=== PATIENT | female | born 1990 | race Caucasian/White ===

== ENCOUNTER 2017-04-29 21:02 | Emergency (ER) | payer SELFPAY ==
[~2017-04-29] VITALS: Ht 167.6 cm; Wt 74.8 kg
[~2017-04-29 21:02] MED LIST: AMLO5TAB4 PO; DIVA500T9 PO; HYDR1TAB10 PO; LISI-338 PO; MEMA10TA PO; MIRT15TA PO; PENI500T PO; QUET100T4 PO
[2017-04-29 21:03] VITALS: BP 109/66
[2017-04-29] MEDS ORDERED: PENI500T PO (21:23)
[2017-04-29] MEDS ORDERED: HYDR-2758 PO (21:23)
--- NOTE | 2017-04-29 21:23 | PHYS DOC ---
Past History Past Medical History: No Pertinent History Past Surgical History: No Surgical History Smoking: Cigarettes Alcohol Use: None Drug Use: None Adult General Chief Complaint Chief Complaint: DENTAL PROBLEM HPI HPI 26-year-old female presenting the emergency department today with dental pain on the right lower jaw. She has pain as a throbbing sensation that is nonradiating moderate and intermittent. She denies any associated swelling of the gingiva. She denies tongue swelling drooling difficulty swallowing or neck pain. onset 7days. Review of systems is negative for fevers chills nausea vomiting. All other review of systems is negative unless otherwise noted in history of present illness. ED course: 26-year-old presenting with dental pain. On evaluation the patient has a large cavity on the buccal surface of her left lower first molar. I prescribed the patient oral penicillin and gave her 650 mg of Tylenol in the emergency department for pain control. I then discharged patient home with a small aliquot of hydrocodone and referred her to see a dentist tomorrow morning. Review of Systems Review of Systems SEE ABOVE. Allergies Allergies Allergies Coded Allergies Type Severity Reaction Last Updated Verified No Known Allergies Allergy Unknown 08/20/13 Yes Physical Exam Physical Exam SEE ABOVE Constitutional: Well developed, well nourished, no acute distress, non-toxic appearance. [] HENT: Normocephalic, atraumatic, bilateral external ears normal, oropharynx moist, no oral exudates, nose normal. [] Eyes: PERRLA, EOMI, conjunctiva normal, no discharge. [] Neck: Normal range of motion, no tenderness, supple, no stridor. [] Cardiovascular:Heart rate regular rhythm, no murmur [] Lungs & Thorax: Bilateral breath sounds clear to auscultation [] Abdomen: Bowel sounds normal, soft, no tenderness, no masses, no pulsatile masses. [] Skin: Warm, dry, no erythema, no rash. [] Back: No tenderness, no CVA tenderness. [] Extremities: No tenderness, no cyanosis, no clubbing, ROM intact, no edema. [] Neurologic: Alert and oriented X 3, normal motor function, normal sensory function, no focal deficits noted. [] Psychologic: Affect normal, judgement normal, mood normal. [] EKG EKG [] Radiology/Procedures Radiology/Procedures [] Course & Med Decision Making Course & Med Decision Making Pertinent Labs and Imaging studies reviewed. (See chart for details) [] Dragon Disclaimer Dragon Disclaimer This electronic medical record was generated, in whole or in part, using a voice recognition dictation system. Departure Departure: Impression: Primary Impression: Pain, dental Disposition: HOME, SELF-CARE Condition: STABLE Referrals: PCP,UNKNOWN (PCP) Patient Instructions: Dental Pain Additional Instructions: Thank you for allowing us to participate in your care today. Followup with a dentist tomorrow. Call your Primary Doctor tomorrow and inform them of your visit today. If you do not have a primary care provider you can ask for a list of our primary care providers. Return to the emergency department you have any new or concerning findings. This should be evaluated by the primary care physician and any necessary consulting services for continued management within a few days after discharge. Return to emergency room if you have any new or concerning symptoms including but not limited to fever, chills, nausea, vomiting, intractable pain, any new rashes, chest pain, shortness of air, uncontrolled bleeding, difficulty breathing, and/or vision loss. You may have been prescribed medication that can change in your level of thinking and ability to operate machinery. These medications include hydrocodone and Ativan. Also, Benadryl has been known to do this as well. Be sure to check with your pharmacist and ask if the medications you've prescribed can affect your level of consciousness. I recommend not operating heavy machinery or driving while on medication such as these. Scripts Penicillin V Potassium (PENICILLIN V POTASSIUM) 500 Mg Tablet 1 TAB PO BID, #10 TAB 0 Refills Prov: EVON DUTTA MD 04/29/17 Hydrocodone Bit/Acetaminophen (HYDROCODONE-APAP 5-325 ) 1 Each Tablet 1 TAB PO PRN Q6HRS Y for PAIN, #10 TAB 0 Refills Prov: EVON DUTTA MD 04/29/17 EVON DUTTA MD Apr 29, 2017 21:23
[2017-04-29] MEDS ORDERED: ACETAMINOPHEN 325 MG TABLET PO ONE (21:45)
== END 2017-04-29 21:30 | disposition home or self-care (01) ==
LOC: ER 21:02
DX: K08.89 Other specified disorders of teeth and supporting structures (principal); F17.210 Nicotine dependence, cigarettes, uncomplicated
CPT/HCPCS: 99283

== ENCOUNTER 2017-08-19 14:48 | Emergency (ER) | payer OTHER ==
[~2017-08-19 14:48] MED LIST changes: +HYDR-2758 PO
[2017-08-19 14:55] VITALS: BP 102/70
[2017-08-19] MEDS ORDERED: HYDR115S2 PO (15:19)
[2017-08-19] MEDS ORDERED: AMOX1TAB61 PO (15:19)
[2017-08-19] MEDS ORDERED: ALBU8.5H8 INH (15:19)
[2017-08-19] MEDS ORDERED: METH4TAB2 PO (15:19)
--- NOTE | 2017-08-19 15:20 | PHYS DOC ---
Past History Past Medical History: No Pertinent History Past Surgical History: No Surgical History Smoking: Cigarettes Alcohol Use: None Drug Use: None Adult General Chief Complaint Chief Complaint: COUGH HPI HPI 26-year-old female patient with history of smoking complaining of productive cough with greenish sputum for one week associated with shortness of breath and nasal congestion and sore throat. Patient states he had subjective fever and chills and episodes of vomiting and diarrhea. Patient states she took over-the- counter medication without improvement of her condition and complaining of hurting all over. She states for the last couple days she has history of pruritic rash rash in left side of her neck without having history of rash. Patient denies and states she is homosexual. Review of Systems Review of Systems Constitutional: Reports subjective fever Eyes: Denies change in visual acuity, redness, or eye pain [] HENT: Postnasal congestion and sore throat Respiratory: Reports cough and shortness of breath Cardiovascular: No additional information not addressed in HPI [] GI: Denies abdominal pain, reports nausea, vomiting, diarrhea [] : Denies dysuria or hematuria [] Musculoskeletal: Denies back pain or joint pain [] Integument: Denies skin lesions, reports rash [] Neurologic: Denies headache, focal weakness or sensory changes [] Endocrine: Denies polyuria or polydipsia [] All other systems were reviewed and found to be within normal limits, except as documented in this note. Allergies Allergies Allergies Coded Allergies Type Severity Reaction Last Updated Verified No Known Allergies Allergy Unknown 08/20/13 Yes Physical Exam Physical Exam Constitutional: Well developed, well nourished, mild distress, non-toxic appearance. [] HENT: Normocephalic, atraumatic, bilateral external ears normal, pharyngeal erythema, no pharyngeal edema ,oropharynx moist, no oral exudates, nasal congestion and edema, maxillary sinus tenderness Eyes: PERRLA, EOMI, conjunctiva normal, no discharge. [] Neck: Normal range of motion, no tenderness, supple, no stridor. [] Cardiovascular:Heart rate regular rhythm, no murmur [] Lungs & Thorax: Bilateral breath sounds clear to auscultation [] Abdomen: Bowel sounds normal, soft, no tenderness, no masses, no pulsatile masses. [] Skin: Small area of maculopapular rash in the left side of neck Back: No tenderness, no CVA tenderness. [] Extremities: No tenderness, no cyanosis, no clubbing, ROM intact, no edema. [] Neurologic: Alert and oriented X 3, normal motor function, normal sensory function, no focal deficits noted. [] Psychologic: Affect normal, judgement normal, mood normal. [] EKG EKG [] Radiology/Procedures Radiology/Procedures [] Course & Med Decision Making Course & Med Decision Making Evaluation of patient in ER showed 26-year-old female patient with complaining of URI symptoms for 1 week. Patient did not have fever in ER. Patient has sinus tenderness without abnormal lung exam. Plan discharge patient home with diagnosis of upper respiratory infection instruction to quit smoking. Dragon Disclaimer Dragon Disclaimer This electronic medical record was generated, in whole or in part, using a voice recognition dictation system. Departure Departure: Impression: Primary Impression: Upper respiratory infection Additional Impressions: Pruritic rash Tobacco abuse Tobacco abuse counseling Disposition: HOME, SELF-CARE (At 1517) Condition: STABLE Referrals: PCP,UNKNOWN (PCP) Patient Instructions: Rash, Smoking Cessation, Upper Respiratory Infection, Adult Additional Instructions: Drink plenty of liquids Follow-up with your primary care physician in 3-5 days Return to ER if not getting better Scripts Hydrocodone/Chlorphen P-Stirex (Tussionex Pennkinetic Susp) 115 Ml [place].er.12h 5 ML PO BID, #120 ML Prov: BOWEN DE LA FUENTE MD 08/19/17 Amoxicillin/Potassium Clav (AUGMENTIN 875-125 TABLET) 1 Each Tablet 1 TAB PO BID, #14 TAB Prov: BOWEN DE LA FUENTE MD 08/19/17 Albuterol Sulfate (PROAIR HFA INHALER) 8.5 Gm Hfa.aer.ad 2 PUFF INH PRN Q6HRS Y for SHORTNESS OF BREATH, #1 INHALER 0 Refills Prov: BOWEN DE LA FUENTE MD 08/19/17 Methylprednisolone (MEDROL) 4 Mg Tab.ds.pk 1 PKG PO UD, #1 PKG Prov: BOWEN DE LA FUENTE MD 08/19/17 Problem Qualifiers BOWEN DE LA FUENTE MD Aug 19, 2017 15:20
== END 2017-08-19 15:25 | disposition home or self-care (01) ==
LOC: ER 14:48
DX: J06.9 Acute upper respiratory infection, unspecified (principal); L29.9 Pruritus, unspecified; R21 Rash and other nonspecific skin eruption; F17.210 Nicotine dependence, cigarettes, uncomplicated; Z71.6 Tobacco abuse counseling
CPT/HCPCS: 99283

== ENCOUNTER 2017-12-15 19:02 | Emergency (ER) | payer OTHER ==
[~2017-12-15] VITALS: Ht 167.6 cm; Wt 61.7 kg
[~2017-12-15 19:02] MED LIST changes: +ALBU8.5H8 INH; +AMOX1TAB61 PO; +DIVA-53 PO; -DIVA500T9 PO; +HYDR115S2 PO; +METH4TAB2 PO
--- NOTE | 2017-12-15 19:14 | ED.ADGEN ---
Past History Past Medical History: No Pertinent History Past Surgical History: No Surgical History Smoking: Cigarettes Alcohol Use: Rarely Drug Use: None Adult General Chief Complaint Chief Complaint ".. This tooth back here is killing me.. I ve had cavity in it before.. but it really started hurting tonight..." " I am also vomiting tonight..." HPI HPI Patient is a 27 year old female who presents with above hx and complaints of dental pain tooth 18 has large cavity. Patient denies any history of immunosuppression. Patient denies any history of travel or specific ill contacts. Patient has multiple other dental caries. Patient denies any intake of bad food. She was no trismus. There is no pointing abscess. Pt. states her tooth hurts so much it causing her to vomit. Review of Systems Review of Systems Constitutional: Denies fever or chills [] Eyes: Denies change in visual acuity, redness, or eye pain [] HENT: Denies nasal congestion or sore throat [Complaints of dental pain Respiratory: Denies cough or shortness of breath [] Cardiovascular: No additional information not addressed in HPI [] GI: Denies abdominal pain, Hx of nausea, vomiting. Denies bloody stools or diarrhea [] : Denies dysuria or hematuria [] Musculoskeletal: Denies back pain or joint pain [] Integument: Denies rash or skin lesions [] Neurologic: Denies headache, focal weakness or sensory changes [] Endocrine: Denies polyuria or polydipsia [] All other systems were reviewed and found to be within normal limits, except as documented in this note. Family History Family History Non-contributory Current Medications Current Medications Current Medications Medications (Trade) Dose Ordered Sig/Flaco Start Time Stop Time Status Last Admin Dose Admin Cephalexin HCl (Keflex) 500 mg 1X ONCE 12/15/17 19:45 12/15/17 19:45 DC 12/15/17 19:38 500 MG Ondansetron HCl (Zofran Odt) 8 mg 1X ONCE 12/15/17 19:15 12/15/17 19:17 DC 12/15/17 19:23 8 MG Oxycodone/ Acetaminophen (Percocet 5/325) 2 tab 1X ONCE 12/15/17 19:45 12/15/17 19:45 DC 12/15/17 19:37 2 TAB Allergies Allergies Allergies Coded Allergies Type Severity Reaction Last Updated Verified No Known Allergies Allergy Unknown 08/20/13 Yes Physical Exam Physical Exam Constitutional: in acute distress, non-toxic appearance. [] HENT: Normocephalic, atraumatic, bilateral external ears normal, oropharynx moist, no oral exudates, nose normal. []Dental caries. Lip rings Eyes: PERRLA, EOMI, conjunctiva normal, no discharge. [] Neck: Normal range of motion, no tenderness, supple, no stridor. [] Cardiovascular:Heart rate regular rhythm, no murmur [] Lungs & Thorax: Bilateral breath sounds equal apex with scattered wheezes on auscultation [] Abdomen: Bowel sounds normal, soft, no tenderness, no masses, no pulsatile masses. [] Skin: Warm, dry, no erythema, no rash. [] Back: No tenderness, no CVA tenderness. [] Extremities: No tenderness, no cyanosis, no clubbing, ROM intact, no edema. [] Neurologic: Alert and oriented X 3, normal motor function, normal sensory function, no focal deficits noted. [] Psychologic: Affect anxious, judgement normal, mood normal. [] Current Patient Data Vital Signs Vital Signs Date Time Temp Pulse Resp B/P (MAP) Pulse Ox O2 Delivery O2 Flow Rate FiO2 12/15/17 19:37 0 98 Room Air 12/15/17 19:15 98.2 87 Lab Results Laboratory Tests Test 12/15/17 18:42 12/15/17 19:23 POC Urine HCG, Qualitative hcg negative (Negative) Urine Collection Type Unknown Urine Color Yellow Urine Clarity Clear Urine pH 6.5 Urine Specific [place] <=1.005 Urine Protein Neg (NEG-TRACE) Urine Glucose (UA) Neg mg/dL (NEG) Urine Ketones (Stick) Neg mg/dL (NEG) Urine Blood Trace (NEG) Urine Nitrite Neg (NEG) Urine Bilirubin Neg (NEG) Urine Urobilinogen Dipstick 0.2 mg/dL (0.2 mg/dL) Urine Leukocyte Esterase Neg (NEG) EKG EKG [] Radiology/Procedures Radiology/Procedures [] Course & Med Decision Making Course & Med Decision Making Pertinent Labs and Imaging studies reviewed. (See chart for details).. Must follow up with Dentist. Further narcotics must be written by primary or dentist. Take Keflex 500 three times a day for dental infection. Zofran for nausea and vomiting. Clear fluid diet x 2 days to allow bowel rest. Must follow up. [] Final Impression Final Impression 1. Dental Pain 2. Nausea And Vomiting[] Dragon Disclaimer Dragon Disclaimer This electronic medical record was generated, in whole or in part, using a voice recognition dictation system. MARIAH BUTT MD Dec 15, 2017 19:14
[2017-12-15 19:15] VITALS: BP 114/70
[2017-12-15] MEDS ORDERED: ONDANSETRON ODT 4 MG TAB.RAPDIS PO ONE (19:15)
[2017-12-15] MEDS ORDERED: ONDA8TAB12 PO (19:27)
[2017-12-15] MEDS ORDERED: CEPH-264 PO (19:27)
[2017-12-15 19:41] LABS: BILIRUBIN,URINE NEG (NEG); CLARITY,URINE CLEAR; COLOR,URINE YELLOW; GLUCOSE,URINE NEG (NEG); NITRITE,URINE NEG (NEG); UROBILINOGEN,URINE 0.2 mg/dL (0.2 mg/dL)
[2017-12-15] MEDS ORDERED: CEPHALEXIN 250 MG CAPSULE PO ONE (19:45)
[2017-12-15] MEDS ORDERED: oxyCODONE/APAP 5/325 1 TAB TABLET PO ONE (19:45)
== END 2017-12-15 19:42 | disposition home or self-care (01) ==
LOC: ER 19:02
DX: K08.89 Other specified disorders of teeth and supporting structures (principal); K02.9 Dental caries, unspecified; R11.2 Nausea with vomiting, unspecified; F17.210 Nicotine dependence, cigarettes, uncomplicated
CPT/HCPCS: 81003; 81025; 99284; Q0162

== ENCOUNTER → 2017-12-21 | Outpatient (CLI) | payer OTHER ==
[2017-12-15 19:15] VITALS: BP 114/70
[~2017-12-21] MED LIST changes: +CEPH-264 PO; +ONDA8TAB12 PO
--- NOTE | 2017-12-21 16:15 | RAD ---
EXAM: Abdomen sonogram. HISTORY: Right upper quadrant pain. TECHNIQUE: Sonographic imaging of the abdomen was performed. COMPARISON: None. FINDINGS: The liver is normal in size. No focal hepatic lesion is seen. The gallbladder is unremarkable. The common bile duct is normal in caliber. The right kidney is normal in size. No solid or cystic renal lesion is seen. There is no hydronephrosis. The pancreas, inferior vena cava and aorta are unremarkable. IMPRESSION: Unremarkable abdomen sonogram. Electronically signed by: Tara Leija MD (12/21/2017 4:12 PM) [place] [id number]
== END | disposition home or self-care (01) ==
LOC: US 15:15
PROVIDERS: ATTEND Neuromusculoskeletal Medicine & OMM
DX: R10.11 Right upper quadrant pain (principal); R11.2 Nausea with vomiting, unspecified; Z87.891 Personal history of nicotine dependence
CPT/HCPCS: 76705

== ENCOUNTER 2019-08-23 09:46 | Emergency (ER) | payer SELFPAY ==
[~2019-08-23] VITALS: Ht 167.6 cm; Wt 77.0 kg
[~2019-08-23 09:46] MED LIST changes: +ALBU2.5V8 INH; -ALBU8.5H8 INH; +HYDR-2155 PO; -HYDR-2758 PO
--- NOTE | 2019-08-23 10:18 | PHYS DOC ---
Past History Past Medical History: Asthma Past Surgical History: No Surgical History Smoking: Cigarettes Alcohol Use: Rarely Drug Use: None Adult General Chief Complaint Chief Complaint: COUGH HPI HPI Patient is a 28 year old female PMH asthma (well controlled, no recent steroids, never hospitalized) who presents with c/o sore throat, itchy nose and watery itchy eyes for the past few days, associated productive cough and right anterior neck fullness. 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 No foreign travel. LMP 3-4 wks ago. Not taking her zyrtec. Review of systems: Fever, chills, dyspnea, orthopnea, hot hemoptysis, chest pain or pressure, nausea, vomiting diarrhea, abdominal pain, aphasia, trismus, drooling, speech changes, rash, leg swelling or hemoptysis. Allergies Allergies Allergies Coded Allergies Type Severity Reaction Last Updated Verified No Known Allergies Allergy Unknown 08/20/13 Yes Physical Exam Physical Exam Constitutional: Well developed, well nourished, no acute distress, non-toxic appearance, afebrile HENT: Normocephalic, atraumatic, bilateral external ears normal, oropharynx moist, no oral exudates or erythema, nose normal, Eyes: EOMI, conjunctiva normal, no discharge. Neck: Normal range of motion, no tenderness, supple, no stridor, right anterior cervical lymphadenopathy Cardiovascular:Heart rate regular rhythm, no murmur Lungs & Thorax: Lateral equal chest rise, speaking in full sentences, unlabored respiratory effort Abdomen: Remove soft, no tenderness, no masses, no pulsatile masses. Skin: Warm, dry, no erythema, no rash. Back: No tenderness, no CVA tenderness. Extremities: No tenderness, no cyanosis, no clubbing, ROM intact, no edema. Neurologic: Alert and oriented X 3, normal motor function, normal sensory function, no focal deficits noted. Psychologic: Affect normal, judgement normal, mood normal. EKG EKG Normal sinus rhythm at 80 bpm, no axis deviation, normal intervals, no significant ST elevations, ST depressions or T wave inversions Radiology/Procedures Radiology/Procedures [address] [address] IMAGING REPORT Signed PATIENT: ADRYAN PASTOR ACCOUNT: [id number] : 1990 LOCATION: ER AGE: 28 SEX: F EXAM STATUS: REG ER ORD. PHYSICIAN: LAWRENCE PARRA DO REASON: soa PROCEDURE: PORTABLE CHEST 1V PORTABLE CHEST 1V Clinical History: Dyspnea Technique: AP view of the chest was obtained at 08/23/2019 9:54 AM. Comparison: None. Findings: The cardiomediastinal silhouette is normal. The pulmonary vasculature is normal. The lungs and pleural margins are clear. Impression: No evidence of an acute cardiopulmonary process. Electronically signed by: Jose Juan Maldonado III, MD (08/23/2019 10:35 AM) [id number] DICTATED AND SIGNED BY: JOSE JUAN MALDONADO III, MD DATE: 08/23/19 1035 CC: LAWRENCE YAN; LAWRENCE PARRA DO ~ Course & Med Decision Making Course & Med Decision Making Pertinent Labs and Imaging studies reviewed. (See chart for details) Patient's labs unremarkable with no leukocytosis. Rapid strep negative. Urine negative. Patient very well-appearing with unremarkable chest x-ray. Concern for upper respiratory infection versus viral process versus seasonal allergies. Will recommend supportive measures, zyrtec/flonase. Strict ed return precautions for fever, increased respiratory effort. Pmd followup in 24-48 hours. All of pts' questions were answered and she was stable at time of discharge. Dragon Disclaimer Dragon Disclaimer This electronic medical record was generated, in whole or in part, using a voice recognition dictation system. Departure Departure: Impression: Primary Impression: URI (upper respiratory infection) Additional Impression: Seasonal allergies Disposition: HOME, SELF-CARE Condition: STABLE Referrals: LAWRENCE YAN (PCP) Patient Instructions: Allergies, Generic, Upper Respiratory Infection, Adult Scripts Fluticasone Propionate (Flonase Allergy Relief) 9.9 Ml [place].susp 2 SPRAYS NS DAILY for allergic rhinits for 14 Days, #1 BOTTLE Prov: LAWRENCE PARRA DO 08/23/19 Cetirizine Hcl (ZYRTEC) 10 Mg Tablet 1 TAB PO DAILY for allergy, #30 TAB 0 Refills Prov: LAWRENCE PARRA DO 08/23/19 Problem Qualifiers LAWRENCE PARRA DO Aug 23, 2019 10:18
--- NOTE | 2019-08-23 10:38 | RAD ---
PORTABLE CHEST 1V Clinical History: Dyspnea Technique: AP view of the chest was obtained at 08/23/2019 9:54 AM. Comparison: None. Findings: The cardiomediastinal silhouette is normal. The pulmonary vasculature is normal. The lungs and pleural margins are clear. Impression: No evidence of an acute cardiopulmonary process. Electronically signed by: Henri Garvey III, MD (08/23/2019 10:35 AM) [id number]
[2019-08-23 11:26] LABS: BASO % 1 % (0-3); EOS # 0.1 x10^3/uL (0.0-0.7); EOS % 1 % (0-3); HEMATOCRIT 39.8 % (36.0-47.0); HEMOGLOBIN 13.5 g/dL (12.0-15.5); LYMPH # 1.8 x10^3/uL (1.0-4.8); LYMPH % 21 % (24-48); MEAN CORPUSCULAR HEMOGLOBIN 31 pg (25-35); MEAN CORPUSCULAR HGB CONC 34 g/dL (31-37); MEAN CORPUSCULAR VOLUME 90 fL (79-100); MONO # 0.8 x10^3/uL (0.0-1.1); MONO % 9 % (0-9); NEUT # 5.8 x10^3uL (1.8-7.7); NEUT % 68 % (31-73); PLATELET COUNT 304 x10^3/uL (140-400); RED BLOOD COUNT 4.41 x10^6/uL (3.50-5.40); WHITE BLOOD COUNT 8.5 x10^3/uL (4.0-11.0)
[2019-08-23 11:35] LABS: CALCIUM 8.8 mg/dL (8.5-10.1); CREATININE 0.8 mg/dL (0.6-1.0); GFR 84.8; POTASSIUM 4.1 mmol/L (3.5-5.1)
[2019-08-23 11:42] LABS: ALBUMIN 3.5 g/dL (3.4-5.0); ALBUMIN/GLOBULIN RATIO 0.8 (1.0-1.7); TOTAL BILIRUBIN 0.2 mg/dL (0.2-1.0); TOTAL PROTEIN 7.7 g/dL (6.4-8.2)
[2019-08-23 12:09] VITALS: BP 98/63
[2019-08-23] MEDS ORDERED: CETI10TA24 PO (12:11)
[2019-08-23] MEDS ORDERED: FLUT9.9S NS (12:11)
--- NOTE | 2019-08-23 15:02 | EKG ---
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
== END 2019-08-23 12:35 | disposition home or self-care (01) ==
LOC: ER 09:46
DX: J06.9 Acute upper respiratory infection, unspecified (principal); J45.909 Unspecified asthma, uncomplicated; F17.210 Nicotine dependence, cigarettes, uncomplicated
CPT/HCPCS: 36415; 71045; 80053; 84702; 85025; 87070; 87880; 93005; 99285

== ENCOUNTER 2019-10-09 09:32 | Emergency (ER) | payer SELFPAY ==
[~2019-10-09] VITALS: Ht 170.2 cm; Wt 77.3 kg
[~2019-10-09 09:32] MED LIST changes: +CETI10TA24 PO; +FLUT9.9S NS
[2019-10-09 09:36] VITALS: BP 113/74
[2019-10-09] MEDS ORDERED: ACETAMINOPHEN 325 MG TABLET PO ONE (09:45)
--- NOTE | 2019-10-09 09:48 | PHYS DOC ---
Past History Past Medical History: Asthma Past Surgical History: No Surgical History Smoking: Cigarettes Alcohol Use: Rarely Drug Use: None General Adult EDM: Chief Complaint: HAND PROBLEM HPI: HPI: Patient presents to the emergency department for evaluation. She states that 2 days ago, she became angry, and punched a desk, and has been having pain in her right hand, right forearm and right elbow since that time. She denies any other injuries, numbness, or weakness. Palpation and movement of the affected area worsens her pain. There are no alleviating factors to her symptoms. Review of Systems: Review of Systems: Constitutional: Denies fever or chills Musculoskeletal: Denies back pain or joint pain, other than as noted in the HPI Integument: Denies rash Neurologic: Denies focal weakness or sensory changes Heart Score: Risk Factors: Risk Factors: DM, Current or recent (<one month) smoker, HTN, HLP, family his tory of CAD, obesity. Risk Scores: Score 0 - 3: 2.5% MACE over next 6 weeks - Discharge Home Score 4 - 6: 20.3% MACE over next 6 weeks - Admit for Clinical Observation Score 7 - 10: 72.7% MACE over next 6 weeks - Early Invasive Strategies Allergies: Allergies: Allergies Coded Allergies Type Severity Reaction Last Updated Verified No Known Allergies Allergy Unknown 08/23/19 Yes Physical Exam: PE: PHYSICAL EXAM: HEENT: Atruamatic NECK: Supple, normal ROM, non-tender. CARDIAC: Regular Rate and Rhythm LUNGS: Clear Bilaterally EXTREMITIES: There is tenderness to palpation of the right hand diffusely, mid and proximal right forearm, and right elbow diffusely, without any gross deformity noted. There is, however, some mild soft tissue swelling consistent with a contusion on the extensor aspect of the right forearm (the patient denies any direct trauma to this area). Full range of motion is present in the digits distally, in the wrist, (which is nontender, there is no snuffbox or other wrist tenderness to palpation), there is normal pronation and supination, as well as flexion and extension of all joints. The remainder the extremities are atra umatic. EKG: EKG: [] Radiology/Procedures: Radiology/Procedures: PROCEDURE: ELBOW RIGHT 3V ELBOW RIGHT 3V, HAND RIGHT 3V, FOREARM RIGHT DATE: 10/09/2019 9:43 AM INDICATION: Reason: pain, injury / Spl. Instructions: / History: COMPARISON: None. FINDINGS: Bones: There is no evidence of acute fracture or dislocation. Joints: The joint spaces are normal. Miscellaneous: None. IMPRESSION: No evidence of acute fracture of the hand, forearm, or elbow. [] Course & Med Decision Making: Course & Med Decision Making Pertinent Imaging studies reviewed. (See chart for details) [] Patient remains stable. I discussed test results, the need for close follow- up, and return precautions. Dragon Disclaimer: Dragon Disclaimer: This electronic medical record was generated, in whole or in part, using a voice recognition dictation system. Departure Departure: Impression: Primary Impression: Contusion Disposition: 01 HOME/RESIDENCE PRIOR TO ADM Condition: STABLE Referrals: LAWRENCE YAN (PCP) Patient Instructions: Contusion, RICE - Routine Care for Injuries Justification of Admission: Justification of Admission: Justification of Admission Dx: N/A TISH MASTERS MD Oct 09, 2019 09:48
--- NOTE | 2019-10-09 10:13 | RAD ---
ELBOW RIGHT 3V, HAND RIGHT 3V, FOREARM RIGHT DATE: 10/09/2019 9:43 AM INDICATION: Reason: pain, injury / Spl. Instructions: / History: COMPARISON: None. FINDINGS: Bones: There is no evidence of acute fracture or dislocation. Joints: The joint spaces are normal. Miscellaneous: None. IMPRESSION: No evidence of acute fracture of the hand, forearm, or elbow. Electronically signed by: Jhonatan Machuca MD (10/09/2019 10:10 AM) [id number]
== END 2019-10-09 10:35 | disposition home or self-care (01) ==
LOC: ER 09:32
DX: S50.11XA Contusion of right forearm, initial encounter (principal); J45.909 Unspecified asthma, uncomplicated; F17.210 Nicotine dependence, cigarettes, uncomplicated; W22.8XXA Striking against or struck by other objects, initial encounter; Y93.89 Activity, other specified; Y92.89 Other specified places as the place of occurrence of the external cause; Y99.8 Other external cause status
CPT/HCPCS: 73080; 73090; 73130; 99284

== ENCOUNTER 2020-10-31 19:37 | Emergency (ER) | payer SELFPAY ==
[~2020-10-31] VITALS: Ht 170.2 cm; Wt 71.5 kg
[~2020-10-31 19:37] MED LIST changes: -CETI10TA24 PO; +CETI10TA74 PO; -LISI-338 PO; +LISI-517 PO; +MIRT-37 PO; -MIRT15TA PO
--- NOTE | 2020-10-31 21:11 | PHYS DOC ---
Past History Past Medical History: Asthma Past Surgical History: No Surgical History Smoking: Cigarettes Alcohol Use: Rarely Drug Use: None Adult General Chief Complaint Chief Complaint: NAUSEA/VOMITING/DIARRHEA HPI HPI Patient is a 29-year-old female with no past medical history outside of heartburn who presents with a chief complaint of feelings of heartburn and nausea. States that she works at [employer] and was at work earlier in began to have these symptoms, intermittently with an episode of watery nonbloody diarrhea. Denies recent traumas, travel, illnesses, fevers, known ill contacts, chest pain, shortness of breath, abdominal pain, dysuria, hematuria or blood in the stool. States she was taken something for heartburn but quit taking it several months ago. Requesting work note for today and tomorrow to be off work to rest. Review of Systems Review of Systems Review of systems otherwise unremarkable except noted in HPI Current Medications Current Medications Current Medications Medications (Trade) Dose Ordered Sig/Flaco Start Time Stop Time Status Last Admin Dose Admin Lactated Ringer's 1,000 ml @ 1,000 mls/hr 1X ONCE 10/31/20 20:45 10/31/20 21:44 Ondansetron HCl (Zofran) 8 mg 1X ONCE 10/31/20 20:45 10/31/20 20:54 DC Allergies Allergies Allergies Coded Allergies Type Severity Reaction Last Updated Verified No Known Allergies Allergy Unknown 08/23/19 Yes Physical Exam Physical Exam Constitutional: Well developed, well nourished, no acute distress, non-toxic appearance. [] HENT: Normocephalic, atraumatic, bilateral external ears normal, oropharynx moist, no oral exudates, nose normal. [] Eyes: conjunctiva normal, no discharge. [] Neck: Normal range of motion, no tenderness, supple, no stridor. [] Cardiovascular:Heart rate regular rhythm, no murmur [] Lungs & Thorax: Bilateral breath sounds clear to auscultation [] Abdomen: Bowel sounds normal, soft, no tenderness, no masses, no pulsatile masses. [] Skin: Warm, dry, no erythema, no rash. [] Back: no CVA tenderness. [] Extremities: No tenderness, ROM intact, no edema. [] Neurologic: Alert and oriented X 3, no focal deficits noted. [] Psychologic: Affect normal, judgement normal, mood normal. [] Current Patient Data Vital Signs Vital Signs Date Time Temp Pulse Resp B/P (MAP) Pulse Ox O2 Delivery O2 Flow Rate FiO2 10/31/20 20:23 98.4 79 16 113/63 98 Room Air EKG EKG [] Radiology/Procedures Radiology/Procedures [] Heart Score C/O Chest Pain: No Risk Factors: Risk Factors: DM, Current or recent (<one month) smoker, HTN, HLP, family history of CAD, obesity. Risk Scores: Risk Factors: DM, Current or recent (<one month) smoker, HTN, HLP, family history of CAD, obesity. Course & Med Decision Making Course & Med Decision Making Patient is a 29-year-old female who presents with nausea, vomiting and watery diarrhea for day Vital signs not concerning. Physical exam noted above. Given Zofran. And IV fluid resuscitation. Laboratory analysis not concerning. Urine negative urinalysis with couple bacteria and some leukocyte esterase but patient denies any urinary symptoms at all. Denies any vaginal discharge, bleeding or pain or history of STIs. States she is feeling much better after the treatment and would like to be discharged home. Requested work note. Requested prescription for Zofran. Advised to follow-up in the morning with primary care. Gave return precautions to the ED. Patient grateful, verbalized understanding and agreed with plan of discharge. [] Dragon Disclaimer Dragon Disclaimer This electronic medical record was generated, in whole or in part, using a voice recognition dictation system. Departure Departure: Impression: Primary Impression: Nausea vomiting and diarrhea Disposition: HOME / SELF CARE / HOMELESS Condition: GOOD Referrals: PAKO CHEN Patient Instructions: Diarrhea, Nausea and Vomiting Additional Instructions: Thank you for coming into the emergency department tonight and allowing us to take care of you. Please read all of the attached information very carefully to go back over what we discussed. Please stay hydrated. Please take your Zofran as needed and prescribed. You are given a work note at your request for today and tomorrow. Please follow-up with your primary care physician in the morning to update on ED visit and set up a follow-up visit. Please come back to the ED with new or concerning symptoms as discussed. Scripts Ondansetron Hcl (ZOFRAN) 4 Mg Tablet 1 TAB PO PRN Q6HRS PRN for NAUSEA, #6 TAB 5 Refills Prov: CONDRA,MILKA W MD 10/31/20 MILKA QUIROZ MD Oct 31, 2020 21:11
[2020-10-31 21:27] LABS: BASO % 1 % (0-3); EOS # 0.1 x10^3/uL (0.0-0.7); EOS % 1 % (0-3); HEMATOCRIT 40.6 % (36.0-47.0); HEMOGLOBIN 13.7 g/dL (12.0-15.5); LYMPH # 2.7 x10^3/uL (1.0-4.8); LYMPH % 34 % (24-48); MEAN CORPUSCULAR HEMOGLOBIN 31 pg (25-35); MEAN CORPUSCULAR HGB CONC 34 g/dL (31-37); MEAN CORPUSCULAR VOLUME 91 fL (79-100); MONO # 0.7 x10^3/uL (0.0-1.1); MONO % 9 % (0-9); NEUT # 4.6 x10^3uL (1.8-7.7); NEUT % 56 % (31-73); PLATELET COUNT 315 x10^3/uL (140-400); RED BLOOD COUNT 4.44 x10^6/uL (3.50-5.40); RED CELL DISTRIBUTION WIDTH 12.9 % (11.5-14.5); WHITE BLOOD COUNT 8.2 x10^3/uL (4.0-11.0)
[2020-10-31] MEDS: ONDANSETRON PF 4 MG/2 ML VIAL. IVP ONE (21:30)
[2020-10-31] MEDS: IV RINGERS SOLUTION,LACTATED 1,000 ML IV ONE (21:30)
[2020-10-31 21:38] LABS: CALCIUM 9.1 mg/dL (8.5-10.1); CREATININE 0.9 mg/dL (0.6-1.0); GFR 73.5
[2020-10-31 21:45] LABS: ALBUMIN 4.1 g/dL (3.4-5.0); TOTAL BILIRUBIN 0.5 mg/dL (0.2-1.0); TOTAL PROTEIN 8.3 g/dL (6.4-8.2)
[2020-10-31 22:59] LABS: BILIRUBIN,URINE SMALL (NEG); CLARITY,URINE CLEAR; COLOR,URINE YELLOW; GLUCOSE,URINE NEG (NEG)
[2020-10-31 23:00] LABS: BACTERIA,URINE FEW /HPF (0-FEW); NITRITE,URINE NEG (NEG); RBC,URINE 0 /HPF (0-2); SQUAMOUS EPITHELIAL CELL,UR MOD /LPF; WBC,URINE OCC /HPF (0-4)
[2020-10-31] MEDS ORDERED: ONDA4TAB7 PO (23:51)
[2020-10-31 23:55] VITALS: BP 101/52
== END 2020-10-31 23:55 | disposition home or self-care (01) ==
LOC: ER 19:37
DX: R11.2 Nausea with vomiting, unspecified (principal); R19.7 Diarrhea, unspecified; R12 Heartburn; J45.909 Unspecified asthma, uncomplicated; F17.210 Nicotine dependence, cigarettes, uncomplicated
CPT/HCPCS: 36415; 80053; 81001; 81025; 83690; 85025; 96361; 96374; 99283; J2405; J7120